=== PATIENT | female | born 1980 | race Caucasian/White ===

== ENCOUNTER 2022-07-13 04:37 | Day surgery (SDC) | payer OTHER ==
[2022-07-09 18:17] VITALS: BMI 25.0
[2022-07-13 12:29] VITALS: RESP 20
[2022-07-13] MEDS ORDERED: LIDOCAINE HCL 1%, 10 MG/ML (20ML VIAL) SQ ONE (14:42)
[2022-07-13] MEDS ORDERED: BUPIVACAINE HCL/PF 0.5% (5 MG/ML) 30 ML VIAL IJ ONE (14:42)
[2022-07-13 18:29] VITALS: BP 106/72; PULSE 56; TEMP 99
== END 2022-07-13 15:31 | disposition home or self-care (01) ==
LOC: JASU-SURG 04:37
PROVIDERS: ATTEND Surgery
PROC: 0JBL0ZZ Excision of Right Upper Leg Subcutaneous Tissue and Fascia, Open Approach (ICD-10-PCS; principal; 2022-07-13 13:30)
DX: D17.23 Benign lipomatous neoplasm of skin and subcutaneous tissue of right leg (principal)
CPT/HCPCS: 81025; 88304-TC